=== PATIENT | male | born 2000 | race African-American/Black ===

== ENCOUNTER 2024-01-28 18:57 | Emergency (ER) | payer SELFPAY ==
[~2024-01-28] VITALS: Ht 180.3 cm; Wt 100.0 kg
[2024-01-28 18:58] VITALS: O2SAT 100
[2024-01-28] MEDS ORDERED: CYCL5TAB MT (21:28)
[2024-01-28] MEDS ORDERED: NAPR-681 PO (21:28)
[2024-01-28] MEDS: IBUPROFEN 600MG TABLET PO STA (21:29)
[2024-01-28 22:16] VITALS: BP 201/118; PULSE 84; RESP 18; TEMP 98.4
[2024-01-28] MEDS: CLONIDINE 0.1MG TABLET PO ONE (22:29)
== END 2024-01-28 22:31 | disposition home or self-care (01) ==
LOC: ER 18:57
DX: S39.012A Strain of muscle, fascia and tendon of lower back, initial encounter (principal); V89.2XXA Person injured in unspecified motor-vehicle accident, traffic, initial encounter; Y93.89 Activity, other specified; Y92.89 Other specified places as the place of occurrence of the external cause; Y99.8 Other external cause status
CPT/HCPCS: 72110; 99283